=== PATIENT | male | born 1970 | race African-American/Black ===

== ENCOUNTER 2021-01-06 16:16 | Inpatient (IN) ==
[2021-01-06] MEDS ORDERED: SODIUM CHLORIDE 0.9% 500 ML IV STA (17:09)
[2021-01-06 17:21] LABS: Basophils % 0.3 % (0.0-0.8); Eosinophils # 0.1 10*3/uL (0.0-0.87); Eosinophils % 0.5 % (0.00-10.9); Hematocrit 30.9 VOL% (42.0-52.0); Hemoglobin 10.7 GM/DL (14.0-18.0); Immature Granulocytes % 1.5 %; Lymphocytes # 1.3 10*3/uL (1.4-4.0); Lymphocytes % 10.2 % (21.2-54.2); Mean Corpuscular HGB Conc 34.6 GM/DL (32-36); Mean Corpuscular Volume 96.6 FL (87-102); Mean Platelet Volume 9.6 FL (9.6-12.0); Monocytes % 12.1 % (1.7-12.7); NRBC # 0.05 10*3/uL; Neutrophils % 75.4 % (38.7-73.9); Platelet Count 108 T/CUMM (130-400); Red Cell Distribution Width 24.3 % (9.3-17.3); White Blood Count 13.1 T/CUMM (4-12)
[2021-01-06 17:32] LABS: PT Patient Result 20.9 SECS (10.5-12.0)
[2021-01-06 17:38] LABS: Bacteria,Urine Many /HPF (Few); Bilirubin,Urine Moderate mg/dL (Negative); Blood, Urine Large mg/dL (Negative); Glucose,Urine (UA) Negative (Negative); Ketones,Urine Negative (Negative); Nitrite,Urine Negative (Negative); Protein,Urine 30 MG/DL; RBC,Urine 20 /HPF (0-4); Squamous Epithelial Cell,Urine Occasional /HPF (0-10); Urine Appearance CLOUDY (Clear); Urine Color Amber (Yellow); Urine Specific Gravity 1.009 (1.001-1.035)
[2021-01-06 17:39] LABS: Partial Thromboplastin Time 49.1 SECS (23.9-33.8)
[2021-01-06 17:46] LABS: Anisocytosis 2+; Macrocytosis 2+; Microcytosis 1+; Polychromasia 2+; Target Cells 2+
[2021-01-06 17:47] LABS: Platelet Estimate Decreased
[2021-01-06 17:49] LABS: Albumin 1.9 G/DL (3.4-5.0); Calcium 9.3 MG/DL (8.5-10.1); Osmolality,Calculated 270.1 MOS/KG (273-304)
[2021-01-06 17:51] LABS: Bilirubin,Total 27.7 MG/DL (0.20-1.00); Potassium 2.2 MMOL/L (3.5-5.1)
[2021-01-06] MEDS ORDERED: cefTRIAXone 2,000 MG in SODIUM CHLORIDE 0.9% 100 ML IV STA (18:02)
[2021-01-06] MEDS: SODIUM CHLOR 0.9% KCL 40 MEQ 40 MEQ/1,000 ML BAG IV SCH (19:12)
[2021-01-06 19:19] LABS: Hepatitis B Core IgM Quant 0.07 Index; Hepatitis B Surface Ag Quant < 0.10 Index; Hepatitis B Surface Ag Result Non-Reactive (NonReactive); Hepatitis C Virus Ab Quant 0.32 Index; Hepatitis C Virus Ab Result Non-Reactive (NonReactive)
[2021-01-06] MEDS ORDERED: DEXTROSE 50% 25 GM/50 ML VIAL IV PRN (20:58)
[2021-01-06] MEDS ORDERED: GLUCAGON 1 MG VIAL IM PRN (20:58)
[2021-01-06] MEDS ORDERED: ONDANSETRON 4 MG/2 ML VIAL IV PRN (20:58)
[2021-01-06 21:49] LABS: Bilirubin,Direct 21.48 MG/DL (0.0-0.20)
[2021-01-06 21:53] LABS: Bilirubin,Indirect 3.9 MG/DL (0.0-1.0); Bilirubin,Total 25.4 MG/DL (0.20-1.00)
[2021-01-06 21:56] LABS: Barbiturates Screen,Urine Negative (Negative); Benzodiazepines Screen,Urine Negative (Negative); Cannabinoid Screen,Urine Positive (Negative); Opiate Screen,Urine Negative (Negative); Phencyclidine Screen,Urine Negative (Negative)
[2021-01-06] MEDS: metroNIDAZOLE INJ 500 MG/100 ML PREMIX IV SCH (23:59)
[2021-01-07] MEDS: POTASSIUM CHLORIDE RIDER 10 MEQ/100 ML PREMIX IV SCH ×8 (01:54→17:16)
[2021-01-07 03:17] LABS: Basophils # 0.1 10*3/uL (0.0-0.2); Basophils % 0.4 % (0.0-0.8); Eosinophils # 0.1 10*3/uL (0.0-0.87); Eosinophils % 0.6 % (0.00-10.9); Hematocrit 31.1 VOL% (42.0-52.0); Hemoglobin 10.8 GM/DL (14.0-18.0); Immature Granulocytes % 1.3 %; Immature Granulocytes Absolute 0.16 #; Lymphocytes # 1.2 10*3/uL (1.4-4.0); Mean Corpuscular HGB Conc 34.7 GM/DL (32-36); Mean Corpuscular Volume 97.8 FL (87-102); Mean Platelet Volume 10.3 FL (9.6-12.0); Monocytes % 14.3 % (1.7-12.7); NRBC # 0.06 10*3/uL; Neutrophils % 73.4 % (38.7-73.9); Platelet Count 109 T/CUMM (130-400); Red Blood Count 3.18 MC/CUMM (3.8-5.5); Red Cell Distribution Width 24.4 % (9.3-17.3); White Blood Count 12.3 T/CUMM (4-12)
[2021-01-07 03:45] LABS: Alanine Aminotransferase 66 U/L (16-61); Albumin 1.7 G/DL (3.4-5.0); Alkaline Phosphatase 133 U/L (45-117); Aspartate Amino Transferase 216 U/L (0-37); Blood Urea Nitrogen 5 MG/DL (7-18); Calcium 9.1 MG/DL (8.5-10.1); Carbon Dioxide 29 MMOL/L (21-32); Estimated Glom Filtration Rate 129 ML/MIN; Glucose 117 MG/DL (74-106); HDL Cholesterol 21 MG/DL (40-60); Osmolality,Calculated 267.1 MOS/KG (273-304); Risk Ratio 2.38; Sodium 135 MMOL/L (136-145); Thyroid Stimulating Hormone 0.442 uIU/ml (0.358-3.74); Total Protein 7.4 G/DL (6.4-8.2); Triglycerides 163 MG/DL (2-150); VLDL Cholesterol 32.6 MG/DL
[2021-01-07 03:50] LABS: Potassium 2.4 MMOL/L (3.5-5.1)
[2021-01-07] MEDS ORDERED: NICOTINE 21 MG/24 HR PATCH TRANSDERM PRN (03:50)
[2021-01-07] MEDS: LORazepam 2 MG/1 ML VIAL IV PRN ×2 (05:09→22:52)
[2021-01-07] MEDS: metroNIDAZOLE INJ 500 MG/100 ML PREMIX IV SCH ×3 (06:11→22:37)
[2021-01-07] MEDS: SODIUM CHLOR 0.9% KCL 40 MEQ 40 MEQ/1,000 ML BAG IV SCH (07:57)
[2021-01-07] MEDS ORDERED: FOLIC ACID 1 MG TABLET PO SCH (09:00)
[2021-01-07] MEDS ORDERED: LACTULOSE 20 GM/30 ML UDCUP PO SCH (09:00)
[2021-01-07] MEDS ORDERED: THIAMINE 100 MG TABLET PO SCH (09:00)
[2021-01-07] MEDS: PANTOPRAZOLE 40 MG TABLET PO SCH (09:22)
[2021-01-07] MEDS ORDERED: MAGNESIUM SULF RIDER 2 GM/50 ML PREMIX IV ONE (09:37)
[2021-01-07 11:17] LABS: Allen Test Positive; Pt O2 Delivery Device Room Air
[2021-01-07 11:18] LABS: ABG Base Excess 5.4 MMOL/L (-2.5-2.5); ABG HCO3 29.3 MMOL/L (20-26); ABG Oxygen Saturation 98.2 % (95-100); ABG PCO2 34.8 MM HG (35-48); ABG PH 7.519 (7.35-7.45); ABG TCO2 25.7 MMOL/L (23-27)
[2021-01-07] MEDS ORDERED: ENOXAPARIN 40 MG/0.4 ML SYRINGE SUBCUT SCH (12:00)
[2021-01-07] MEDS ORDERED: PHYTONADIONE 10 MG/1 ML AMP SUBCUT ONE (12:14)
[2021-01-07] MEDS ORDERED: chlordiazePOXIDE 25 MG CAPSULE PO SCH (14:00)
[2021-01-07] MEDS: THIAMINE INJ 100 MG, FOLIC ACID INJ 1 MG, MULTIVITAMIN INJ 10 ML in SODIUM CHLORIDE 0.9... IV SCH (15:14)
[2021-01-07] MEDS: LACTULOSE 20 GM/30 ML UDCUP PO SCH ×3 (15:15→22:37)
[2021-01-07] MEDS ORDERED: cefTRIAXone 1,000 MG in SODIUM CHLORIDE 0.9% 100 ML IV SCH (18:00)
[2021-01-07] MEDS: POTASSIUM CHLORIDE RIDER 10 MEQ/100 ML PREMIX IV PRN ×2 (22:37→23:57)
[2021-01-08] MEDS: POTASSIUM CHLORIDE RIDER 10 MEQ/100 ML PREMIX IV PRN ×6 (01:14→23:45)
[2021-01-08] MEDS: LACTULOSE 20 GM/30 ML UDCUP PO SCH ×5 (02:12→20:54)
[2021-01-08 05:22] LABS: Basophils # 0.1 10*3/uL (0.0-0.2); Basophils % 0.5 % (0.0-0.8); Eosinophils # 0.2 10*3/uL (0.0-0.87); Eosinophils % 1.8 % (0.00-10.9); Hematocrit 28.5 VOL% (42.0-52.0); Hemoglobin 9.8 GM/DL (14.0-18.0); Immature Granulocytes % 1.3 %; Immature Granulocytes Absolute 0.17 #; Lymphocytes # 1.2 10*3/uL (1.4-4.0); Mean Corpuscular HGB Conc 34.4 GM/DL (32-36); Mean Corpuscular Volume 100.4 FL (87-102); Mean Platelet Volume 9.6 FL (9.6-12.0); Monocytes % 14.1 % (1.7-12.7); NRBC # 0.05 10*3/uL; Neutrophils % 73.3 % (38.7-73.9); Platelet Count 106 T/CUMM (130-400); Red Blood Count 2.84 MC/CUMM (3.8-5.5); Red Cell Distribution Width 24.7 % (9.3-17.3); White Blood Count 13.1 T/CUMM (4-12)
[2021-01-08 05:31] LABS: INR 2.1; PT Patient Result 22.1 SECS (10.5-12.0)
[2021-01-08 06:07] LABS: Albumin 1.7 G/DL (3.4-5.0); Calcium 9.1 MG/DL (8.5-10.1); Potassium 2.6 MMOL/L (3.5-5.1); Total Protein 7.3 G/DL (6.4-8.2)
[2021-01-08 06:18] LABS: Bilirubin,Total 24.3 MG/DL (0.20-1.00)
[2021-01-08] MEDS: metroNIDAZOLE INJ 500 MG/100 ML PREMIX IV SCH (06:31)
[2021-01-08] MEDS ORDERED: SODIUM CHLORIDE 0.9% 250 ML IV ONE (07:27)
[2021-01-08] MEDS: PANTOPRAZOLE 40 MG TABLET PO SCH (08:59)
[2021-01-08] MEDS: POTASSIUM CHLORIDE RIDER 10 MEQ/100 ML PREMIX IV SCH ×4 (09:41→14:27)
[2021-01-08] MEDS ORDERED: SODIUM CHLORIDE 0.9% 1,000 ML IV PRN (10:17)
[2021-01-08] MEDS ORDERED: PHYTONADIONE 10 MG/1 ML AMP SUBCUT ONE (10:18)
[2021-01-08] MEDS ORDERED: SODIUM CHLORIDE 0.9% 1,000 ML IV ONE (13:52)
[2021-01-08] MEDS: MEROPENEM 500 MG in SODIUM CHLORIDE 0.9% 100 ML IV SCH ×2 (14:27→20:53)
[2021-01-08] MEDS: SODIUM CHLORIDE 0.9% 1,000 ML IV SCH (16:07)
[2021-01-08] MEDS: THIAMINE INJ 100 MG, FOLIC ACID INJ 1 MG, MULTIVITAMIN INJ 10 ML in SODIUM CHLORIDE 0.9... IV SCH (16:07)
[2021-01-09 01:07] LABS: Basophils % 0.3 % (0.0-0.8); Eosinophils # 0.3 10*3/uL (0.0-0.87); Hematocrit 25.7 VOL% (42.0-52.0); Hemoglobin 8.7 GM/DL (14.0-18.0); Immature Granulocytes % 1.4 %; Immature Granulocytes Absolute 0.19 #; Lymphocytes # 1.4 10*3/uL (1.4-4.0); Mean Corpuscular HGB Conc 33.9 GM/DL (32-36); Mean Corpuscular Volume 102.4 FL (87-102); Mean Platelet Volume 9.6 FL (9.6-12.0); Monocytes % 12.7 % (1.7-12.7); NRBC # 0.12 10*3/uL; Neutrophils % 73.6 % (38.7-73.9); Platelet Count 108 T/CUMM (130-400); Red Blood Count 2.51 MC/CUMM (3.8-5.5); Red Cell Distribution Width 24.7 % (9.3-17.3); White Blood Count 13.6 T/CUMM (4-12)
[2021-01-09] MEDS: POTASSIUM CHLORIDE RIDER 10 MEQ/100 ML PREMIX IV PRN ×5 (01:08→23:12)
[2021-01-09 01:35] LABS: Band Neutrophils 1 % (0-10); Eosinophils 1 % (0-10); Hypochromasia Slight; Lymphocytes 11 % (20-55); Platelet Estimate Normal; Segmented Neutrophils 75 % (50-85); Total Cells Counted 100
[2021-01-09 01:36] LABS: Albumin 2.1 G/DL (3.4-5.0); Calcium 9.1 MG/DL (8.5-10.1); Osmolality,Calculated 275.4 MOS/KG (273-304); Total Protein 7.2 G/DL (6.4-8.2)
[2021-01-09 02:00] LABS: Bilirubin,Total 25.2 MG/DL (0.20-1.00)
[2021-01-09] MEDS: MEROPENEM 500 MG in SODIUM CHLORIDE 0.9% 100 ML IV SCH ×4 (02:21→20:32)
[2021-01-09] MEDS: SODIUM CHLORIDE 0.9% 1,000 ML IV SCH ×2 (06:18→08:52)
[2021-01-09 08:06] LABS: INR 4.9; Partial Thromboplastin Time 60.4 SECS (23.9-33.8)
[2021-01-09] MEDS: PANTOPRAZOLE 40 MG TABLET PO SCH (08:52)
[2021-01-09] MEDS: POTASSIUM CHLORIDE 20 MEQ PACK PO SCH (08:52)
[2021-01-09] MEDS: LACTULOSE 20 GM/30 ML UDCUP PO SCH ×2 (09:23→20:32)
[2021-01-09 10:42] LABS: INR 1.7
[2021-01-09 10:44] LABS: PT Patient Result 18.2 SECS (10.5-12.0)
[2021-01-09] MEDS: THIAMINE INJ 100 MG, FOLIC ACID INJ 1 MG, MULTIVITAMIN INJ 10 ML in SODIUM CHLORIDE 0.9... IV SCH (14:35)
[2021-01-09] MEDS: SKIN HEALING OINT (AQUAPHOR) 50 GM TUBE TOP SCH (17:18)
[2021-01-10] MEDS: SODIUM CHLORIDE 0.9% 1,000 ML IV SCH ×2 (00:02→03:11)
[2021-01-10] MEDS: POTASSIUM CHLORIDE RIDER 10 MEQ/100 ML PREMIX IV PRN ×5 (00:15→06:08)
[2021-01-10] MEDS: MEROPENEM 500 MG in SODIUM CHLORIDE 0.9% 100 ML IV SCH ×4 (01:18→20:12)
[2021-01-10 02:57] LABS: Basophils # 0.1 10*3/uL (0.0-0.2); Basophils % 0.4 % (0.0-0.8); Eosinophils # 0.3 10*3/uL (0.0-0.87); Hematocrit 25.9 VOL% (42.0-52.0); Hemoglobin 8.7 GM/DL (14.0-18.0); Immature Granulocytes % 1.2 %; Immature Granulocytes Absolute 0.19 #; Lymphocytes # 1.3 10*3/uL (1.4-4.0); Lymphocytes % 8.2 % (21.2-54.2); Mean Corpuscular HGB Conc 33.6 GM/DL (32-36); Mean Corpuscular Volume 104.4 FL (87-102); Mean Platelet Volume 9.1 FL (9.6-12.0); NRBC # 0.13 10*3/uL; Neutrophils % 75.2 % (38.7-73.9); Red Blood Count 2.48 MC/CUMM (3.8-5.5); Red Cell Distribution Width 23.8 % (9.3-17.3); White Blood Count 16.3 T/CUMM (4-12)
[2021-01-10 02:59] LABS: Platelet Count 97 T/CUMM (130-400)
[2021-01-10 03:17] LABS: Albumin 1.9 G/DL (3.4-5.0); Calcium 8.6 MG/DL (8.5-10.1); Osmolality,Calculated 279.3 MOS/KG (273-304); Potassium 3.3 MMOL/L (3.5-5.1); Total Protein 6.9 G/DL (6.4-8.2)
[2021-01-10 03:23] LABS: Bilirubin,Total 25.4 MG/DL (0.20-1.00)
[2021-01-10 03:34] LABS: Hypochromasia 2+; Platelet Estimate Decreased; Target Cells 1+
[2021-01-10] MEDS ORDERED: POTASSIUM CHLORIDE 20 MEQ PACK PO ONE (07:13)
[2021-01-10] MEDS ORDERED: LACTATED RINGERS 500 ML IV ONE (07:15)
[2021-01-10 08:07] LABS: INR 1.9; PT Patient Result 20.3 SECS (10.5-12.0)
[2021-01-10] MEDS: PANTOPRAZOLE 40 MG TABLET PO SCH (08:35)
[2021-01-10] MEDS: LACTULOSE 20 GM/30 ML UDCUP PO SCH ×2 (08:36→20:12)
[2021-01-10] MEDS: SKIN HEALING OINT (AQUAPHOR) 50 GM TUBE TOP SCH (08:42)
[2021-01-10] MEDS: LACTATED RINGERS 1,000 ML IV SCH (13:43)
[2021-01-10] MEDS: THIAMINE INJ 100 MG, FOLIC ACID INJ 1 MG, MULTIVITAMIN INJ 10 ML in SODIUM CHLORIDE 0.9... IV SCH (14:38)
[2021-01-11] MEDS: MEROPENEM 500 MG in SODIUM CHLORIDE 0.9% 100 ML IV SCH ×4 (02:03→20:43)
[2021-01-11 03:27] LABS: Basophils # 0.1 10*3/uL (0.0-0.2); Basophils % 0.3 % (0.0-0.8); Eosinophils # 0.4 10*3/uL (0.0-0.87); Eosinophils % 2.3 % (0.00-10.9); Hemoglobin 7.7 GM/DL (14.0-18.0); Immature Granulocytes % 2.3 %; Immature Granulocytes Absolute 0.36 #; Lymphocytes # 1.6 10*3/uL (1.4-4.0); Lymphocytes % 10.3 % (21.2-54.2); Mean Corpuscular HGB Conc 33.5 GM/DL (32-36); Mean Corpuscular Volume 104.5 FL (87-102); Mean Platelet Volume 9.3 FL (9.6-12.0); NRBC # 0.12 10*3/uL; Neutrophils % 70.8 % (38.7-73.9); Platelet Count 116 T/CUMM (130-400); Red Cell Distribution Width 23.3 % (9.3-17.3); White Blood Count 15.4 T/CUMM (4-12)
[2021-01-11 03:43] LABS: Albumin 1.6 G/DL (3.4-5.0); Calcium 8.5 MG/DL (8.5-10.1); Osmolality,Calculated 277.4 MOS/KG (273-304); PT Patient Result 21.5 SECS (10.5-12.0); Potassium 3.3 MMOL/L (3.5-5.1); Total Protein 6.2 G/DL (6.4-8.2)
[2021-01-11 03:50] LABS: Band Neutrophils 1 % (0-10); Eosinophils 4 % (0-10); Lymphocytes 9 % (20-55); Nucleated Red Blood Cells 2 (0-5); Segmented Neutrophils 69 % (50-85); Total Cells Counted 100
[2021-01-11 03:51] LABS: Hypochromasia 2+; Microcytosis 1+
[2021-01-11] MEDS: LACTATED RINGERS 1,000 ML IV SCH (04:01)
[2021-01-11 04:15] LABS: Bilirubin,Total 24.3 MG/DL (0.20-1.00)
[2021-01-11] MEDS: PANTOPRAZOLE 40 MG TABLET PO SCH (09:33)
[2021-01-11] MEDS: LACTULOSE 20 GM/30 ML UDCUP PO SCH ×2 (09:33→20:43)
[2021-01-11] MEDS: SKIN HEALING OINT (AQUAPHOR) 50 GM TUBE TOP SCH (09:38)
[2021-01-11 09:42] LABS: Basophils # 0.1 10*3/uL (0.0-0.2); Basophils % 0.3 % (0.0-0.8); Eosinophils # 0.3 10*3/uL (0.0-0.87); Eosinophils % 1.7 % (0.00-10.9); Hematocrit 24.3 VOL% (42.0-52.0); Hemoglobin 8.3 GM/DL (14.0-18.0); Immature Granulocytes Absolute 0.48 #; Lymphocytes # 1.8 10*3/uL (1.4-4.0); Lymphocytes % 11.2 % (21.2-54.2); Mean Corpuscular HGB Conc 34.2 GM/DL (32-36); Mean Corpuscular Volume 102.1 FL (87-102); Mean Platelet Volume 9.2 FL (9.6-12.0); Monocytes % 14.3 % (1.7-12.7); NRBC # 0.09 10*3/uL; Neutrophils % 69.5 % (38.7-73.9); Platelet Count 109 T/CUMM (130-400); Red Blood Count 2.38 MC/CUMM (3.8-5.5)
[2021-01-11 10:01] LABS: Eosinophils 1 % (0-10); Hypochromasia 1+; Lymphocytes 9 % (20-55); Microcytosis 1+; Platelet Estimate Decreased; Segmented Neutrophils 83 % (50-85); Total Cells Counted 100
[2021-01-11] MEDS: POTASSIUM CHLORIDE 20 MEQ TABLET PO PRN ×3 (10:26→14:56)
[2021-01-11] MEDS: PHYTONADIONE 5 MG/5 ML ORAL.SYR PO SCH (11:09)
[2021-01-11] MEDS: THIAMINE INJ 100 MG, FOLIC ACID INJ 1 MG, MULTIVITAMIN INJ 10 ML in SODIUM CHLORIDE 0.9... IV SCH (14:04)
[2021-01-11] MEDS: TAMSULOSIN 0.4 MG CAPSULE PO SCH (20:43)
[2021-01-11] MEDS ORDERED: SODIUM CHLORIDE 0.9% 1,000 ML IV PRN (20:48)
[2021-01-11] MEDS ORDERED: PHYTONADIONE 5 MG/5 ML ORAL.SYR PO STA (20:48)
[2021-01-12] MEDS: LACTATED RINGERS 1,000 ML IV SCH ×2 (01:55→20:28)
[2021-01-12] MEDS: MEROPENEM 500 MG in SODIUM CHLORIDE 0.9% 100 ML IV SCH ×4 (04:00→20:29)
[2021-01-12 05:57] LABS: Basophils # 0.1 10*3/uL (0.0-0.2); Basophils % 0.4 % (0.0-0.8); Eosinophils # 0.3 10*3/uL (0.0-0.87); Eosinophils % 1.9 % (0.00-10.9); Hematocrit 21.6 VOL% (42.0-52.0); Hemoglobin 7.3 GM/DL (14.0-18.0); Immature Granulocytes % 2.8 %; Immature Granulocytes Absolute 0.41 #; Lymphocytes # 1.8 10*3/uL (1.4-4.0); Lymphocytes % 12.6 % (21.2-54.2); Mean Corpuscular HGB Conc 33.8 GM/DL (32-36); Mean Corpuscular Volume 104.9 FL (87-102); Mean Platelet Volume 9.9 FL (9.6-12.0); Monocytes % 16.8 % (1.7-12.7); NRBC # 0.11 10*3/uL; Neutrophils % 65.5 % (38.7-73.9); Platelet Count 113 T/CUMM (130-400); Red Blood Count 2.06 MC/CUMM (3.8-5.5); White Blood Count 14.4 T/CUMM (4-12)
[2021-01-12 06:05] LABS: INR 1.5; PT Patient Result 16.6 SECS (10.5-12.0)
[2021-01-12 06:19] LABS: Eosinophils 6 % (0-10); Hypochromasia 1+; Lymphocytes 9 % (20-55); Microcytosis 1+; Nucleated Red Blood Cells 3 (0-5); Ovalocytes Slight; Platelet Estimate Decreased; Segmented Neutrophils 68 % (50-85); Total Cells Counted 100
[2021-01-12 06:30] LABS: Albumin 1.9 G/DL (3.4-5.0); Calcium 9.6 MG/DL (8.5-10.1); Osmolality,Calculated 277.4 MOS/KG (273-304); Potassium 3.1 MMOL/L (3.5-5.1); Total Protein 6.8 G/DL (6.4-8.2)
[2021-01-12 06:33] LABS: Bilirubin,Total 24.1 MG/DL (0.20-1.00)
[2021-01-12] MEDS ORDERED: SODIUM CHLORIDE 0.9% 1,000 ML IV PRN (08:10)
[2021-01-12] MEDS: POTASSIUM CHLORIDE 20 MEQ TABLET PO SCH ×2 (09:00→10:11)
[2021-01-12] MEDS: PHYTONADIONE 5 MG/5 ML ORAL.SYR PO SCH (09:00)
[2021-01-12] MEDS: POTASSIUM CHLORIDE 20 MEQ TABLET PO PRN (09:00)
[2021-01-12] MEDS: PANTOPRAZOLE 40 MG TABLET PO SCH (09:00)
[2021-01-12] MEDS: SKIN HEALING OINT (AQUAPHOR) 50 GM TUBE TOP SCH (09:01)
[2021-01-12] MEDS: LACTULOSE 20 GM/30 ML UDCUP PO SCH ×2 (09:02→20:29)
[2021-01-12] MEDS: chlordiazePOXIDE 25 MG CAPSULE PO SCH ×3 (10:11→20:27)
[2021-01-12] MEDS: THIAMINE INJ 100 MG, FOLIC ACID INJ 1 MG, MULTIVITAMIN INJ 10 ML in SODIUM CHLORIDE 0.9... IV SCH (14:48)
[2021-01-12] MEDS: PENTOXIFYLLINE 400 MG TABLET PO SCH ×2 (16:17→20:32)
[2021-01-12] MEDS: TAMSULOSIN 0.4 MG CAPSULE PO SCH (20:27)
[2021-01-13] MEDS: MEROPENEM 500 MG in SODIUM CHLORIDE 0.9% 100 ML IV SCH ×4 (02:38→20:47)
[2021-01-13 03:23] LABS: Basophils # 0.1 10*3/uL (0.0-0.2); Basophils % 0.4 % (0.0-0.8); Eosinophils # 0.3 10*3/uL (0.0-0.87); Hematocrit 23.2 VOL% (42.0-52.0); Hemoglobin 7.6 GM/DL (14.0-18.0); Immature Granulocytes % 3.9 %; Immature Granulocytes Absolute 0.58 #; Lymphocytes # 1.8 10*3/uL (1.4-4.0); Lymphocytes % 12.2 % (21.2-54.2); Mean Corpuscular HGB Conc 32.8 GM/DL (32-36); Mean Corpuscular Volume 106.4 FL (87-102); Mean Platelet Volume 9.5 FL (9.6-12.0); Monocytes % 16.5 % (1.7-12.7); NRBC # 0.19 10*3/uL; Platelet Count 117 T/CUMM (130-400); Red Blood Count 2.18 MC/CUMM (3.8-5.5); White Blood Count 14.8 T/CUMM (4-12)
[2021-01-13 03:51] LABS: Albumin 2.2 G/DL (3.4-5.0); Calcium 9.6 MG/DL (8.5-10.1); Osmolality,Calculated 275.5 MOS/KG (273-304); Potassium 3.3 MMOL/L (3.5-5.1); Total Protein 7.3 G/DL (6.4-8.2)
[2021-01-13 03:53] LABS: Eosinophils 2 % (0-10); Hypochromasia Slight; Lymphocytes 14 % (20-55); Platelet Estimate Normal; Segmented Neutrophils 65 % (50-85); Total Cells Counted 100
[2021-01-13 03:55] LABS: Bilirubin,Total 24.6 MG/DL (0.20-1.00)
[2021-01-13 04:00] LABS: INR 1.6; PT Patient Result 16.9 SECS (10.5-12.0)
[2021-01-13 07:50] LABS: Hematocrit 20.7 VOL% (42.0-52.0)
[2021-01-13 07:58] LABS: INR 1.6
[2021-01-13] MEDS: POTASSIUM CHLORIDE 20 MEQ TABLET PO SCH ×3 (09:06→20:49)
[2021-01-13] MEDS: chlordiazePOXIDE 25 MG CAPSULE PO SCH ×3 (09:22→20:49)
[2021-01-13] MEDS: PHYTONADIONE 5 MG/5 ML ORAL.SYR PO SCH ×2 (09:22→20:50)
[2021-01-13] MEDS: PENTOXIFYLLINE 400 MG TABLET PO SCH ×3 (09:22→20:49)
[2021-01-13] MEDS: LACTULOSE 20 GM/30 ML UDCUP PO SCH ×2 (09:22→20:49)
[2021-01-13] MEDS: PANTOPRAZOLE 40 MG TABLET PO SCH (09:22)
[2021-01-13] MEDS ORDERED: SODIUM CHLORIDE 0.9% 1,000 ML IV PRN (11:32)
[2021-01-13 11:51] LABS: CMV DNA Detect/Quant, P Undetected IU/mL (Undetected)
[2021-01-13] MEDS: POTASSIUM CHLORIDE 20 MEQ TABLET PO PRN (14:36)
[2021-01-13] MEDS ORDERED: LACTULOSE 20 GM/30 ML UDCUP PO ONE (15:00)
[2021-01-13] MEDS ORDERED: LACTULOSE 20 GM/30 ML UDCUP PO PRN (18:12)
[2021-01-13] MEDS: LACTATED RINGERS 1,000 ML IV SCH ×2 (19:38→20:47)
[2021-01-13] MEDS: SKIN HEALING OINT (AQUAPHOR) 50 GM TUBE TOP SCH (19:38)
[2021-01-13] MEDS: TAMSULOSIN 0.4 MG CAPSULE PO SCH (20:49)
[2021-01-13] MEDS ORDERED: PHYTONADIONE 5 MG/5 ML ORAL.SYR PO ONE (21:00)
[2021-01-14] MEDS: MEROPENEM 500 MG in SODIUM CHLORIDE 0.9% 100 ML IV SCH ×4 (01:41→20:33)
[2021-01-14 04:41] LABS: Basophils # 0.1 10*3/uL (0.0-0.2); Basophils % 0.7 % (0.0-0.8); Eosinophils # 0.1 10*3/uL (0.0-0.87); Eosinophils % 0.6 % (0.00-10.9); Hematocrit 28.3 VOL% (42.0-52.0); Hemoglobin 9.6 GM/DL (14.0-18.0); Immature Granulocytes Absolute 0.43 #; Lymphocytes # 1.7 10*3/uL (1.4-4.0); Lymphocytes % 11.8 % (21.2-54.2); Mean Corpuscular HGB Conc 33.9 GM/DL (32-36); Mean Corpuscular Volume 101.1 FL (87-102); Mean Platelet Volume 9.6 FL (9.6-12.0); Monocytes % 14.1 % (1.7-12.7); Neutrophils % 69.8 % (38.7-73.9); Platelet Count 136 T/CUMM (130-400); Red Cell Distribution Width 23.6 % (9.3-17.3); White Blood Count 14.4 T/CUMM (4-12)
[2021-01-14 04:49] LABS: INR 1.8; PT Patient Result 19.2 SECS (10.5-12.0)
[2021-01-14 05:05] LABS: Hypochromasia 1+; Platelet Estimate Normal
[2021-01-14 05:12] LABS: Albumin 2.3 G/DL (3.4-5.0); Calcium 10.1 MG/DL (8.5-10.1); Potassium 3.4 MMOL/L (3.5-5.1); Total Protein 7.7 G/DL (6.4-8.2)
[2021-01-14 05:19] LABS: Bilirubin,Total 26.1 MG/DL (0.20-1.00)
[2021-01-14] MEDS ORDERED: chlordiazePOXIDE 25 MG CAPSULE PO SCH (09:00)
[2021-01-14] MEDS: LACTULOSE 20 GM/30 ML UDCUP PO SCH ×2 (09:10→20:33)
[2021-01-14] MEDS: SKIN HEALING OINT (AQUAPHOR) 50 GM TUBE TOP SCH (09:11)
[2021-01-14] MEDS: POTASSIUM CHLORIDE 20 MEQ TABLET PO PRN ×3 (09:11→17:13)
[2021-01-14] MEDS: PANTOPRAZOLE 40 MG TABLET PO SCH (09:11)
[2021-01-14] MEDS: PENTOXIFYLLINE 400 MG TABLET PO SCH ×3 (09:11→20:53)
[2021-01-14] MEDS: PHYTONADIONE 5 MG/5 ML ORAL.SYR PO SCH ×2 (09:11→20:33)
[2021-01-14] MEDS ORDERED: PHYTONADIONE 10 MG/1 ML AMP SUBCUT ONE (09:32)
[2021-01-14] MEDS: POTASSIUM CHLORIDE 20 MEQ TABLET PO SCH ×2 (10:28→20:33)
[2021-01-14] MEDS ORDERED: SODIUM CHLORIDE 0.9% 1,000 ML IV ONE (11:58)
[2021-01-14] MEDS ORDERED: FUROSEMIDE 40 MG/4 ML VIAL ONE (12:31)
[2021-01-14] MEDS ORDERED: FUROSEMIDE 40 MG/4 ML VIAL IV ONE (12:32)
[2021-01-14] MEDS: LACTATED RINGERS 1,000 ML IV SCH ×3 (13:27→23:34)
[2021-01-14 13:52] LABS: ABG Base Excess -2.7 MMOL/L (-2.5-2.5); ABG Oxygen Saturation 85.4 % (95-100); ABG PCO2 30.8 MM HG (35-48); ABG PH 7.438 (7.35-7.45); ABG PO2 56.1 MM HG (80-95); ABG TCO2 19.2 MMOL/L (23-27)
[2021-01-14 14:57] LABS: Calcium 10.1 MG/DL (8.5-10.1); Osmolality,Calculated 281.1 MOS/KG (273-304); Potassium 3.6 MMOL/L (3.5-5.1)
[2021-01-14] MEDS ORDERED: ALBUMIN 25% 25 GM/100 ML VIAL IV ONE (15:07)
[2021-01-14] MEDS: metroNIDAZOLE INJ 500 MG/100 ML PREMIX IV SCH ×2 (15:34→23:34)
[2021-01-14] MEDS: TAMSULOSIN 0.4 MG CAPSULE PO SCH (20:33)
[2021-01-15 01:19] LABS: Basophils % 0.2 % (0.0-0.8); Eosinophils % 0.2 % (0.00-10.9); Immature Granulocytes % 1.5 %; Immature Granulocytes Absolute 0.25 #; Lymphocytes # 1.7 10*3/uL (1.4-4.0); Lymphocytes % 9.8 % (21.2-54.2); Mean Corpuscular HGB Conc 33.3 GM/DL (32-36); Mean Corpuscular Volume 101.5 FL (87-102); Mean Platelet Volume 9.7 FL (9.6-12.0); Monocytes % 10.3 % (1.7-12.7); NRBC # 0.57 10*3/uL; Platelet Count 130 T/CUMM (130-400); Red Blood Count 2.66 MC/CUMM (3.8-5.5); Red Cell Distribution Width 24.7 % (9.3-17.3)
[2021-01-15 01:19] LABS: ABG HCO3 21.9 MMOL/L (20-26); ABG Oxygen Saturation 94.7 % (95-100); ABG PCO2 30.7 MM HG (35-48); ABG PH 7.434 (7.35-7.45); ABG PO2 79.2 MM HG (80-95)
[2021-01-15] MEDS ORDERED: ETOMIDATE 20 MG/10 ML VIAL IV ONE ×2 (01:23→01:36)
[2021-01-15] MEDS ORDERED: ROCURONIUM 100 MG/10 ML VIAL IV ONE ×2 (01:24→01:36)
[2021-01-15] MEDS ORDERED: fentaNYL INJ 5,000 MCG in SODIUM CHLORIDE 0.9% 150 ML IV PRN (01:41)
[2021-01-15 01:42] LABS: INR 1.9; PT Patient Result 20.5 SECS (10.5-12.0)
[2021-01-15 01:47] LABS: Albumin 2.2 G/DL (3.4-5.0); Calcium 9.9 MG/DL (8.5-10.1); Osmolality,Calculated 278.3 MOS/KG (273-304); Potassium 5.2 MMOL/L (3.5-5.1)
[2021-01-15 01:52] LABS: Bilirubin,Total 24.3 MG/DL (0.20-1.00)
[2021-01-15] MEDS: MIDAZOLAM 100 MG in SODIUM CHLORIDE 0.9% 80 ML IV PRN (02:20)
[2021-01-15] MEDS: MEROPENEM 500 MG in SODIUM CHLORIDE 0.9% 100 ML IV SCH ×4 (02:54→21:33)
[2021-01-15 03:10] LABS: Lymphocytes 8 % (20-55); Metamyelocytes 1 %; Nucleated Red Blood Cells 5 (0-5); Platelet Estimate Normal; Segmented Neutrophils 85 % (50-85); Total Cells Counted 100
[2021-01-15 03:11] LABS: Macrocytosis 1+
[2021-01-15 03:12] LABS: Anisocytosis 2+; Target Cells 1+
[2021-01-15 03:13] LABS: Polychromasia 1+
[2021-01-15 03:35] LABS: ABG Base Excess -4.1 MMOL/L (-2.5-2.5); ABG HCO3 21.1 MMOL/L (20-26); ABG Oxygen Saturation 99.6 % (95-100); ABG PCO2 32.7 MM HG (35-48); ABG PH 7.397 (7.35-7.45); ABG TCO2 18.5 MMOL/L (23-27)
[2021-01-15] MEDS: metroNIDAZOLE INJ 500 MG/100 ML PREMIX IV SCH ×2 (06:04→16:23)
[2021-01-15] MEDS: LACTATED RINGERS 1,000 ML IV SCH ×2 (08:43→17:05)
[2021-01-15] MEDS: LACTULOSE 20 GM/30 ML UDCUP PO SCH ×2 (09:24→21:33)
[2021-01-15] MEDS: PHYTONADIONE 5 MG/5 ML ORAL.SYR PO SCH ×2 (09:24→21:33)
[2021-01-15] MEDS: PANTOPRAZOLE 40 MG VIAL IV SCH (09:25)
[2021-01-15] MEDS: NOREPINEPHRINE 8 MG in SODIUM CHLORIDE 0.9% 242 ML IV PRN (13:05)
[2021-01-15] MEDS: SKIN HEALING OINT (AQUAPHOR) 50 GM TUBE TOP SCH (14:00)
[2021-01-15] MEDS ORDERED: LIDOCAINE 2% TOP JELLY 20 ML VIAL INTRAURETH ONE ×2 (15:07→15:10)
[2021-01-15 17:27] LABS: Bacteria,Urine Occasional /HPF (Few); Blood, Urine Negative (Negative); Glucose,Urine (UA) 50 mg/dL (Negative); Hyaline Casts,Urine 66 /LPF (0-3); Ketones,Urine 5 mg/dL (Negative); Mucus,Urine Occasional /LPF (Occasional); Nitrite,Urine Negative (Negative); Protein,Urine 30 MG/DL; RBC,Urine 1 /HPF (0-4); Squamous Epithelial Cell,Urine Occasional /HPF (0-10); Urine Appearance CLEAR (Clear); Urine Color Amber (Yellow); Urine Specific Gravity 1.026 (1.001-1.035)
[2021-01-15 17:33] LABS: Bilirubin,Urine Moderate mg/dL (Negative)
[2021-01-15] MEDS: TAMSULOSIN 0.4 MG CAPSULE PO SCH (21:33)
[2021-01-16] MEDS: metroNIDAZOLE INJ 500 MG/100 ML PREMIX IV SCH ×4 (00:03→23:48)
[2021-01-16] MEDS ORDERED: LACTATED RINGERS 250 ML IV ONE (02:27)
[2021-01-16] MEDS: LACTATED RINGERS 1,000 ML IV SCH ×3 (02:49→17:00)
[2021-01-16] MEDS: MEROPENEM 500 MG in SODIUM CHLORIDE 0.9% 100 ML IV SCH ×4 (02:50→20:15)
[2021-01-16 04:04] LABS: Basophils # 0.1 10*3/uL (0.0-0.2); Basophils % 0.3 % (0.0-0.8); Eosinophils # 0.3 10*3/uL (0.0-0.87); Eosinophils % 1.6 % (0.00-10.9); Hematocrit 22.2 VOL% (42.0-52.0); Hemoglobin 7.4 GM/DL (14.0-18.0); Immature Granulocytes % 2.6 %; Immature Granulocytes Absolute 0.46 #; Lymphocytes # 1.3 10*3/uL (1.4-4.0); Lymphocytes % 7.3 % (21.2-54.2); Mean Corpuscular HGB Conc 33.3 GM/DL (32-36); Mean Corpuscular Volume 103.3 FL (87-102); Mean Platelet Volume 10.1 FL (9.6-12.0); Monocytes % 11.1 % (1.7-12.7); NRBC # 0.91 10*3/uL; Neutrophils % 77.1 % (38.7-73.9); Platelet Count 107 T/CUMM (130-400); Red Blood Count 2.15 MC/CUMM (3.8-5.5); Red Cell Distribution Width 25.2 % (9.3-17.3); White Blood Count 17.4 T/CUMM (4-12)
[2021-01-16 04:07] LABS: Albumin 1.9 G/DL (3.4-5.0); Calcium 9.3 MG/DL (8.5-10.1); Osmolality,Calculated 283.8 MOS/KG (273-304); Potassium 3.5 MMOL/L (3.5-5.1); Total Protein 6.2 G/DL (6.4-8.2)
[2021-01-16 04:11] LABS: ABG Base Excess -1.3 MMOL/L (-2.5-2.5); ABG HCO3 23.5 MMOL/L (20-26); ABG Oxygen Saturation 89.8 % (95-100); ABG PCO2 39.8 MM HG (35-48); ABG PH 7.389 (7.35-7.45); ABG PO2 62.9 MM HG (80-95); ABG TCO2 24.7 MMOL/L (23-27)
[2021-01-16 04:17] LABS: Band Neutrophils 1 % (0-10); Hypochromasia 1+; Lymphocytes 7 % (20-55); Microcytosis 1+; Nucleated Red Blood Cells 5 (0-5); Platelet Estimate Decreased; Segmented Neutrophils 81 % (50-85); Total Cells Counted 100
[2021-01-16 04:19] LABS: PT Patient Result 21.6 SECS (10.5-12.0)
[2021-01-16] MEDS ORDERED: SODIUM CHLORIDE 0.9% 1,000 ML IV PRN (07:10)
[2021-01-16] MEDS: NOREPINEPHRINE 8 MG in SODIUM CHLORIDE 0.9% 242 ML IV PRN (07:40)
[2021-01-16] MEDS: MIDAZOLAM 100 MG in SODIUM CHLORIDE 0.9% 80 ML IV PRN (09:17)
[2021-01-16] MEDS: SKIN HEALING OINT (AQUAPHOR) 50 GM TUBE TOP SCH (09:25)
[2021-01-16] MEDS: LACTULOSE 20 GM/30 ML UDCUP PO SCH ×2 (09:25→20:16)
[2021-01-16] MEDS: PANTOPRAZOLE 40 MG VIAL IV SCH (09:25)
[2021-01-16] MEDS: PHYTONADIONE 5 MG/5 ML ORAL.SYR PO SCH ×2 (09:26→20:16)
[2021-01-16 19:41] LABS: Hematocrit 30.8 VOL% (42.0-52.0); Hemoglobin 10.1 GM/DL (14.0-18.0)
[2021-01-16] MEDS: TAMSULOSIN 0.4 MG CAPSULE PO SCH (20:16)
[2021-01-17] MEDS: MEROPENEM 500 MG in SODIUM CHLORIDE 0.9% 100 ML IV SCH ×4 (01:06→20:21)
[2021-01-17] MEDS: LACTATED RINGERS 1,000 ML IV SCH ×5 (01:08→22:53)
[2021-01-17] MEDS: NOREPINEPHRINE 8 MG in SODIUM CHLORIDE 0.9% 242 ML IV PRN ×4 (01:10→18:45)
[2021-01-17 04:15] LABS: Basophils # 0.1 10*3/uL (0.0-0.2); Basophils % 0.7 % (0.0-0.8); Eosinophils # 0.2 10*3/uL (0.0-0.87); Eosinophils % 1.1 % (0.00-10.9); Hematocrit 29.7 VOL% (42.0-52.0); Hemoglobin 9.8 GM/DL (14.0-18.0); Immature Granulocytes % 4.1 %; Immature Granulocytes Absolute 0.83 #; Lymphocytes # 1.6 10*3/uL (1.4-4.0); Lymphocytes % 7.8 % (21.2-54.2); Mean Corpuscular Volume 99.7 FL (87-102); Mean Platelet Volume 10.3 FL (9.6-12.0); Monocytes % 11.4 % (1.7-12.7); NRBC # 0.68 10*3/uL; Neutrophils % 74.9 % (38.7-73.9); Platelet Count 104 T/CUMM (130-400); Red Blood Count 2.98 MC/CUMM (3.8-5.5); Red Cell Distribution Width 23.6 % (9.3-17.3); White Blood Count 20.4 T/CUMM (4-12)
[2021-01-17 04:35] LABS: Band Neutrophils 6 % (0-10); Eosinophils 1 % (0-10); Hypochromasia Slight; Lymphocytes 6 % (20-55); Nucleated Red Blood Cells 4 (0-5); Platelet Estimate Decreased; Segmented Neutrophils 84 % (50-85); Total Cells Counted 100
[2021-01-17 04:36] LABS: Microcytosis Slight
[2021-01-17 04:47] LABS: Albumin 1.8 G/DL (3.4-5.0); Calcium 9.1 MG/DL (8.5-10.1); Osmolality,Calculated 288.7 MOS/KG (273-304); Potassium 4.3 MMOL/L (3.5-5.1); Total Protein 6.5 G/DL (6.4-8.2)
[2021-01-17 04:48] LABS: ABG Base Excess -4.3 MMOL/L (-2.5-2.5); ABG HCO3 20.9 MMOL/L (20-26); ABG Oxygen Saturation 96.5 % (95-100); ABG PH 7.342 (7.35-7.45); ABG PO2 93.8 MM HG (80-95); ABG TCO2 19.4 MMOL/L (23-27)
[2021-01-17 04:51] LABS: Bilirubin,Total 22.6 MG/DL (0.20-1.00)
[2021-01-17 04:51] LABS: INR 2.1
[2021-01-17 05:14] LABS: PT Patient Result 22.5 SECS (10.5-12.0)
[2021-01-17] MEDS: metroNIDAZOLE INJ 500 MG/100 ML PREMIX IV SCH ×3 (08:00→22:48)
[2021-01-17] MEDS: PHYTONADIONE 5 MG/5 ML ORAL.SYR PO SCH ×2 (08:01→20:20)
[2021-01-17] MEDS: PANTOPRAZOLE 40 MG VIAL IV SCH (08:01)
[2021-01-17] MEDS: LACTULOSE 20 GM/30 ML UDCUP PO SCH ×2 (08:01→20:20)
[2021-01-17] MEDS: SKIN HEALING OINT (AQUAPHOR) 50 GM TUBE TOP SCH (08:38)
[2021-01-17] MEDS: methylPREDNISolone SOD SUC 40 MG/1 ML VIAL IV SCH ×2 (09:25→20:20)
[2021-01-17] MEDS ORDERED: LACTATED RINGERS 500 ML IV ONE (09:37)
[2021-01-17] MEDS ORDERED: FUROSEMIDE 40 MG/4 ML VIAL IV ONE (14:46)
[2021-01-17] MEDS ORDERED: NOREPINEPHRINE 4 MG/4 ML VIAL IV ONE (18:43)
[2021-01-17] MEDS: TAMSULOSIN 0.4 MG CAPSULE PO SCH (20:21)
[2021-01-18] MEDS: NOREPINEPHRINE 8 MG in SODIUM CHLORIDE 0.9% 242 ML IV PRN ×2 (00:36→06:07)
[2021-01-18] MEDS: MEROPENEM 500 MG in SODIUM CHLORIDE 0.9% 100 ML IV SCH ×4 (02:35→20:27)
[2021-01-18 03:38] LABS: ABG Base Excess -5.5 MMOL/L (-2.5-2.5); ABG HCO3 19.8 MMOL/L (20-26); ABG Oxygen Saturation 91.5 % (95-100); ABG PCO2 44.1 MM HG (35-48); ABG PH 7.286 (7.35-7.45); ABG PO2 72.6 MM HG (80-95); ABG TCO2 19.4 MMOL/L (23-27)
[2021-01-18 05:27] LABS: Basophils # 0.1 10*3/uL (0.0-0.2); Basophils % 0.5 % (0.0-0.8); Eosinophils % 0.1 % (0.00-10.9); Hematocrit 31.4 VOL% (42.0-52.0); Hemoglobin 10.3 GM/DL (14.0-18.0); Immature Granulocytes % 4.2 %; Immature Granulocytes Absolute 0.96 #; Lymphocytes % 8.9 % (21.2-54.2); Mean Corpuscular HGB Conc 32.8 GM/DL (32-36); Mean Corpuscular Volume 100.6 FL (87-102); Mean Platelet Volume 10.2 FL (9.6-12.0); Monocytes % 9.7 % (1.7-12.7); NRBC # 0.29 10*3/uL; Neutrophils % 76.6 % (38.7-73.9); Platelet Count 108 T/CUMM (130-400); Red Blood Count 3.12 MC/CUMM (3.8-5.5); Red Cell Distribution Width 24.4 % (9.3-17.3); White Blood Count 22.9 T/CUMM (4-12)
[2021-01-18 05:47] LABS: Band Neutrophils 7 % (0-10); Lymphocytes 6 % (20-55); Platelet Estimate Adequate; Segmented Neutrophils 85 % (50-85); Total Cells Counted 100
[2021-01-18 05:48] LABS: Albumin 1.6 G/DL (3.4-5.0); Calcium 8.4 MG/DL (8.5-10.1); Osmolality,Calculated 298.4 MOS/KG (273-304); Potassium 3.7 MMOL/L (3.5-5.1); Total Protein 6.8 G/DL (6.4-8.2)
[2021-01-18 05:56] LABS: Bilirubin,Total 21.6 MG/DL (0.20-1.00)
[2021-01-18] MEDS: metroNIDAZOLE INJ 500 MG/100 ML PREMIX IV SCH ×3 (06:13→23:14)
[2021-01-18] MEDS: LACTATED RINGERS 1,000 ML IV SCH ×5 (06:36→23:14)
[2021-01-18] MEDS: PANTOPRAZOLE 40 MG VIAL IV SCH (08:01)
[2021-01-18] MEDS: PHYTONADIONE 5 MG/5 ML ORAL.SYR PO SCH ×2 (08:01→20:27)
[2021-01-18] MEDS: LACTULOSE 20 GM/30 ML UDCUP PO SCH ×2 (08:01→20:27)
[2021-01-18] MEDS: methylPREDNISolone SOD SUC 40 MG/1 ML VIAL IV SCH ×2 (08:01→20:28)
[2021-01-18] MEDS: SKIN HEALING OINT (AQUAPHOR) 50 GM TUBE TOP SCH (08:02)
[2021-01-18] MEDS: POTASSIUM CHLORIDE 20 MEQ TABLET PO PRN (08:02)
[2021-01-18] MEDS: TAMSULOSIN 0.4 MG CAPSULE PO SCH (20:30)
[2021-01-19] MEDS: MEROPENEM 500 MG in SODIUM CHLORIDE 0.9% 100 ML IV SCH ×4 (02:59→20:40)
[2021-01-19 03:44] LABS: ABG Base Excess -0.4 MMOL/L (-2.5-2.5); ABG HCO3 23.8 MMOL/L (20-26); ABG Oxygen Saturation 83.1 % (95-100); ABG PCO2 38.9 MM HG (35-48); ABG PH 7.401 (7.35-7.45); ABG PO2 55.2 MM HG (80-95); ABG TCO2 21.9 MMOL/L (23-27); Allen Test Positive; Pt O2 Delivery Device Ventilator
[2021-01-19] MEDS: LACTATED RINGERS 1,000 ML IV SCH ×2 (06:02→06:34)
[2021-01-19 06:06] LABS: Basophils # 0.1 10*3/uL (0.0-0.2); Basophils % 0.9 % (0.0-0.8); Hematocrit 30.2 VOL% (42.0-52.0); Hemoglobin 10.1 GM/DL (14.0-18.0); Immature Granulocytes % 4.9 %; Immature Granulocytes Absolute 0.66 #; Lymphocytes # 0.9 10*3/uL (1.4-4.0); Lymphocytes % 6.6 % (21.2-54.2); Mean Corpuscular HGB Conc 33.4 GM/DL (32-36); Mean Corpuscular Volume 98.7 FL (87-102); Mean Platelet Volume 10.2 FL (9.6-12.0); NRBC # 0.25 10*3/uL; Neutrophils % 80.6 % (38.7-73.9); Red Blood Count 3.06 MC/CUMM (3.8-5.5); Red Cell Distribution Width 23.8 % (9.3-17.3)
[2021-01-19 06:13] LABS: White Blood Count 13.6 T/CUMM (4-12)
[2021-01-19 06:14] LABS: Platelet Count 65 T/CUMM (130-400)
[2021-01-19] MEDS: metroNIDAZOLE INJ 500 MG/100 ML PREMIX IV SCH ×3 (06:34→23:09)
[2021-01-19 06:37] LABS: Albumin 1.4 G/DL (3.4-5.0); Calcium 8.9 MG/DL (8.5-10.1); Osmolality,Calculated 306.7 MOS/KG (273-304); Potassium 2.9 MMOL/L (3.5-5.1); Total Protein 6.1 G/DL (6.4-8.2)
[2021-01-19 06:39] LABS: Band Neutrophils 29 % (0-10); Lymphocytes 4 % (20-55); Nucleated Red Blood Cells 5 (0-5); Segmented Neutrophils 62 % (50-85); Total Cells Counted 100
[2021-01-19 06:40] LABS: Anisocytosis 2+; Basophilic Stippling Slight; Burr Cells Few; Macrocytosis 1+; Platelet Estimate Decreased; Poikilocytosis Slight; Target Cells Few
[2021-01-19 06:41] LABS: Atypical Lymphocytes Few
[2021-01-19 06:44] LABS: Bilirubin,Total 19.1 MG/DL (0.20-1.00)
[2021-01-19] MEDS: POTASSIUM CHLORIDE 20 MEQ TABLET PO PRN ×4 (07:15→13:34)
[2021-01-19] MEDS: PANTOPRAZOLE 40 MG VIAL IV SCH (08:56)
[2021-01-19] MEDS: PHYTONADIONE 5 MG/5 ML ORAL.SYR PO SCH ×2 (08:56→20:40)
[2021-01-19] MEDS: LACTULOSE 20 GM/30 ML UDCUP PO SCH ×2 (08:56→20:39)
[2021-01-19] MEDS: methylPREDNISolone SOD SUC 40 MG/1 ML VIAL IV SCH ×2 (08:57→20:40)
[2021-01-19] MEDS: SKIN HEALING OINT (AQUAPHOR) 50 GM TUBE TOP SCH (09:01)
[2021-01-19] MEDS: FUROSEMIDE 40 MG/4 ML VIAL IV SCH ×2 (09:01→15:31)
[2021-01-19] MEDS: FAMOTIDINE 8 MG/ML 50 ML/BOTTLE PER TUBE SCH ×5 (11:56→23:10)
[2021-01-19] MEDS: TAMSULOSIN 0.4 MG CAPSULE PO SCH (20:39)
[2021-01-19] MEDS: MIDAZOLAM 100 MG in SODIUM CHLORIDE 0.9% 80 ML IV PRN (22:10)
[2021-01-19] MEDS: POTASSIUM CHLORIDE RIDER 10 MEQ/100 ML PREMIX IV PRN (23:09)
[2021-01-19] MEDS: POTASSIUM BICARB EFFERVESCENT 20 MEQ TAB.EFF PER TUBE PRN (23:09)
[2021-01-20] MEDS: MEROPENEM 500 MG in SODIUM CHLORIDE 0.9% 100 ML IV SCH ×4 (01:15→20:20)
[2021-01-20] MEDS: POTASSIUM BICARB EFFERVESCENT 20 MEQ TAB.EFF PER TUBE PRN ×4 (01:15→08:03)
[2021-01-20 04:04] LABS: ABG Base Excess 6.8 MMOL/L (-2.5-2.5); ABG HCO3 30.5 MMOL/L (20-26); ABG Oxygen Saturation 95.8 % (95-100); ABG PCO2 41.3 MM HG (35-48); ABG PH 7.482 (7.35-7.45); ABG PO2 81.4 MM HG (80-95); ABG TCO2 27.7 MMOL/L (23-27)
[2021-01-20] MEDS: metroNIDAZOLE INJ 500 MG/100 ML PREMIX IV SCH ×3 (06:02→23:31)
[2021-01-20 06:15] LABS: Basophils # 0.1 10*3/uL (0.0-0.2); Basophils % 0.5 % (0.0-0.8); Hematocrit 33.3 VOL% (42.0-52.0); Hemoglobin 10.8 GM/DL (14.0-18.0); Immature Granulocytes % 5.7 %; Immature Granulocytes Absolute 0.76 #; Lymphocytes # 0.9 10*3/uL (1.4-4.0); Lymphocytes % 7.1 % (21.2-54.2); Mean Corpuscular HGB Conc 32.4 GM/DL (32-36); Mean Corpuscular Volume 97.9 FL (87-102); Mean Platelet Volume 9.7 FL (9.6-12.0); Monocytes % 6.6 % (1.7-12.7); NRBC # 0.32 10*3/uL; Neutrophils % 80.1 % (38.7-73.9); White Blood Count 13.3 T/CUMM (4-12)
[2021-01-20 06:16] LABS: Platelet Count 67 T/CUMM (130-400)
[2021-01-20 06:22] LABS: INR 1.9; PT Patient Result 20.7 SECS (10.5-12.0)
[2021-01-20 06:31] LABS: Albumin 1.6 G/DL (3.4-5.0); Calcium 9.4 MG/DL (8.5-10.1); Potassium 3.6 MMOL/L (3.5-5.1); Total Protein 6.9 G/DL (6.4-8.2)
[2021-01-20 06:32] LABS: Bilirubin,Total 24.4 MG/DL (0.20-1.00)
[2021-01-20 06:36] LABS: Band Neutrophils 5 % (0-10); Lymphocytes 7 % (20-55); Nucleated Red Blood Cells 2 (0-5); Platelet Estimate Decreased; Segmented Neutrophils 79 % (50-85); Total Cells Counted 100
[2021-01-20] MEDS: PHYTONADIONE 5 MG/5 ML ORAL.SYR PO SCH ×2 (08:02→20:21)
[2021-01-20] MEDS: methylPREDNISolone SOD SUC 40 MG/1 ML VIAL IV SCH ×2 (08:03→20:22)
[2021-01-20] MEDS: FUROSEMIDE 40 MG/4 ML VIAL IV SCH ×2 (08:03→15:01)
[2021-01-20] MEDS: LACTULOSE 20 GM/30 ML UDCUP PO SCH ×2 (08:03→20:21)
[2021-01-20] MEDS: PANTOPRAZOLE 40 MG VIAL IV SCH (08:03)
[2021-01-20] MEDS: SKIN HEALING OINT (AQUAPHOR) 50 GM TUBE TOP SCH (08:04)
[2021-01-20] MEDS: ALBUMIN 25% 12.5 GM/50 ML VIAL IV SCH ×2 (10:30→20:30)
[2021-01-20 11:26] LABS: ABG Base Excess 8.9 MMOL/L (-2.5-2.5); ABG HCO3 32.6 MMOL/L (20-26); ABG Oxygen Saturation 97.6 % (95-100); ABG PH 7.527 (7.35-7.45); ABG PO2 97.9 MM HG (80-95); ABG TCO2 27.3 MMOL/L (23-27); Allen Test Positive; Pt O2 Delivery Device Ventilator
[2021-01-20] MEDS: TAMSULOSIN 0.4 MG CAPSULE PO SCH (20:21)
[2021-01-21] MEDS: MEROPENEM 500 MG in SODIUM CHLORIDE 0.9% 100 ML IV SCH ×4 (01:37→19:46)
[2021-01-21 03:58] LABS: ABG Base Excess 14.8 MMOL/L (-2.5-2.5); ABG HCO3 38.7 MMOL/L (20-26); ABG Oxygen Saturation 99.7 % (95-100); ABG PCO2 42.6 MM HG (35-48); ABG PH 7.567 (7.35-7.45); ABG TCO2 35.4 MMOL/L (23-27)
[2021-01-21] MEDS: metroNIDAZOLE INJ 500 MG/100 ML PREMIX IV SCH ×3 (06:33→22:32)
[2021-01-21 07:37] LABS: Basophils % 0.2 % (0.0-0.8); Hematocrit 29.5 VOL% (42.0-52.0); Hemoglobin 9.6 GM/DL (14.0-18.0); Immature Granulocytes Absolute 0.37 #; Lymphocytes # 0.9 10*3/uL (1.4-4.0); Lymphocytes % 7.2 % (21.2-54.2); Mean Corpuscular HGB Conc 32.5 GM/DL (32-36); Mean Corpuscular Volume 99.3 FL (87-102); Mean Platelet Volume 11.2 FL (9.6-12.0); Monocytes % 3.6 % (1.7-12.7); NRBC # 0.25 10*3/uL; Red Blood Count 2.97 MC/CUMM (3.8-5.5); Red Cell Distribution Width 23.4 % (9.3-17.3); White Blood Count 12.4 T/CUMM (4-12)
[2021-01-21 07:39] LABS: Platelet Count 46 T/CUMM (130-400)
[2021-01-21 07:56] LABS: Calcium 8.9 MG/DL (8.5-10.1); Osmolality,Calculated 306.9 MOS/KG (273-304)
[2021-01-21 07:58] LABS: Potassium 2.5 MMOL/L (3.5-5.1)
[2021-01-21 08:06] LABS: Band Neutrophils 1 % (0-10); Lymphocytes 9 % (20-55); Nucleated Red Blood Cells 1 (0-5); Platelet Estimate Decreased; Segmented Neutrophils 87 % (50-85); Total Cells Counted 100
[2021-01-21 08:07] LABS: Hypochromasia 1+
[2021-01-21] MEDS: POTASSIUM CHLORIDE RIDER 10 MEQ/100 ML PREMIX IV PRN ×8 (08:27→22:50)
[2021-01-21] MEDS: FUROSEMIDE 40 MG/4 ML VIAL IV SCH (09:16)
[2021-01-21] MEDS: methylPREDNISolone SOD SUC 40 MG/1 ML VIAL IV SCH ×2 (09:25→21:13)
[2021-01-21] MEDS: PANTOPRAZOLE 40 MG VIAL IV SCH (09:26)
[2021-01-21] MEDS: ALBUMIN 25% 12.5 GM/50 ML VIAL IV SCH ×2 (09:26→21:13)
[2021-01-21] MEDS: PHYTONADIONE 5 MG/5 ML ORAL.SYR PO SCH ×2 (09:27→21:14)
[2021-01-21] MEDS: LACTULOSE 20 GM/30 ML UDCUP PO SCH ×2 (09:27→21:12)
[2021-01-21] MEDS: SKIN HEALING OINT (AQUAPHOR) 50 GM TUBE TOP SCH (09:29)
[2021-01-21] MEDS ORDERED: AMINO ACIDS/DEXT/LYTES 5-20% 2,000 ML IV ONE (17:00)
[2021-01-21] MEDS: TAMSULOSIN 0.4 MG CAPSULE PO SCH (21:12)
[2021-01-21] MEDS: POTASSIUM BICARB EFFERVESCENT 20 MEQ TAB.EFF PER TUBE PRN (21:13)
[2021-01-22 04:25] LABS: ABG Base Excess 12.1 MMOL/L (-2.5-2.5); ABG HCO3 35.9 MMOL/L (20-26); ABG Oxygen Saturation 99.6 % (95-100); ABG PCO2 37.9 MM HG (35-48); ABG PH 7.576 (7.35-7.45); ABG TCO2 31.3 MMOL/L (23-27)
[2021-01-22 05:28] LABS: Osmolality,Calculated 299.3 MOS/KG (273-304); Potassium 3.2 MMOL/L (3.5-5.1); Total Protein 6.4 G/DL (6.4-8.2)
[2021-01-22 05:36] LABS: Bilirubin,Total 27.6 MG/DL (0.20-1.00)
[2021-01-22] MEDS: POTASSIUM BICARB EFFERVESCENT 20 MEQ TAB.EFF PER TUBE PRN ×2 (06:20→08:39)
[2021-01-22 08:01] LABS: Basophils % 0.2 % (0.0-0.8); Hemoglobin 10.4 GM/DL (14.0-18.0); Immature Granulocytes % 2.4 %; Immature Granulocytes Absolute 0.39 #; Mean Corpuscular HGB Conc 33.5 GM/DL (32-36); Mean Corpuscular Volume 97.2 FL (87-102); Mean Platelet Volume 11.2 FL (9.6-12.0); Monocytes % 3.4 % (1.7-12.7); NRBC # 0.19 10*3/uL; Platelet Count 42 T/CUMM (130-400); Red Blood Count 3.19 MC/CUMM (3.8-5.5); Red Cell Distribution Width 22.7 % (9.3-17.3)
[2021-01-22 08:18] LABS: Lymphocytes 4 % (20-55); Nucleated Red Blood Cells 1 (0-5); Segmented Neutrophils 91 % (50-85); Total Cells Counted 100
[2021-01-22 08:19] LABS: Hypochromasia 1+; Target Cells Few
[2021-01-22 08:20] LABS: Anisocytosis 1+; Macrocytosis 1+; Platelet Estimate Decreased
[2021-01-22] MEDS: methylPREDNISolone SOD SUC 40 MG/1 ML VIAL IV SCH ×2 (08:38→20:39)
[2021-01-22] MEDS: SKIN HEALING OINT (AQUAPHOR) 50 GM TUBE TOP SCH (08:39)
[2021-01-22] MEDS: ALBUMIN 25% 12.5 GM/50 ML VIAL IV SCH ×2 (08:39→20:39)
[2021-01-22] MEDS: PANTOPRAZOLE 40 MG VIAL IV SCH (08:39)
[2021-01-22] MEDS: LACTULOSE 20 GM/30 ML UDCUP PO SCH ×2 (09:04→20:39)
[2021-01-22] MEDS: PHYTONADIONE 5 MG/5 ML ORAL.SYR PO SCH ×2 (09:04→20:39)
[2021-01-22] MEDS: FLUCONAZOLE 40 MG/ML 35 ML/BOTTLE PO SCH (11:06)
[2021-01-22] MEDS: ALBUTEROL/IPRATROPIUM 3 ML NEB RESP TX SCH ×2 (13:08→20:03)
[2021-01-22] MEDS ORDERED: MULTIVITAMIN INJ 10 ML in AMINO ACIDS/DEXT/LYTES 4.25-5% 2,000 ML IV SCH (17:00)
[2021-01-22] MEDS ORDERED: AMINO ACIDS/DEXT/LYTES 5-20% 2,000 ML IV SCH (17:00)
[2021-01-22] MEDS: INSULIN REGULAR 100 UNIT/ML SUBCUT SCH ×2 (17:27→23:53)
[2021-01-22] MEDS: DEXMEDETOMIDINE 200 MCG in SODIUM CHLORIDE 0.9% 48 ML IV PRN (20:05)
[2021-01-22] MEDS: TAMSULOSIN 0.4 MG CAPSULE PO SCH (20:39)
[2021-01-23 05:10] LABS: ABG Base Excess 11.7 MMOL/L (-2.5-2.5); ABG HCO3 34.3 MMOL/L (20-26); ABG Oxygen Saturation 98.4 % (95-100); ABG PCO2 36.7 MM HG (35-48); ABG PH 7.588 (7.35-7.45); ABG PO2 109.9 MM HG (80-95); ABG TCO2 35.4 MMOL/L (23-27); Allen Test Positive; Pt O2 Delivery Device Ventilator
[2021-01-23] MEDS: DEXMEDETOMIDINE 200 MCG in SODIUM CHLORIDE 0.9% 48 ML IV PRN ×3 (05:30→16:53)
[2021-01-23 05:49] LABS: Basophils % 0.1 % (0.0-0.8); Hemoglobin 10.3 GM/DL (14.0-18.0); Immature Granulocytes % 0.9 %; Immature Granulocytes Absolute 0.16 #; Lymphocytes # 0.7 10*3/uL (1.4-4.0); Lymphocytes % 4.1 % (21.2-54.2); Mean Corpuscular HGB Conc 33.2 GM/DL (32-36); Mean Corpuscular Volume 98.4 FL (87-102); Mean Platelet Volume 12.2 FL (9.6-12.0); Monocytes % 2.5 % (1.7-12.7); NRBC # 0.15 10*3/uL; Neutrophils % 92.4 % (38.7-73.9); Red Blood Count 3.15 MC/CUMM (3.8-5.5); Red Cell Distribution Width 22.5 % (9.3-17.3)
[2021-01-23] MEDS: INSULIN REGULAR 100 UNIT/ML SUBCUT SCH ×3 (06:02→18:45)
[2021-01-23 06:05] LABS: Platelet Count 36 T/CUMM (130-400)
[2021-01-23 06:18] LABS: Hypochromasia Slight; Lymphocytes 3 % (20-55); Nucleated Red Blood Cells 1 (0-5); Platelet Estimate Decreased; Segmented Neutrophils 95 % (50-85); Total Cells Counted 100
[2021-01-23 06:19] LABS: Macrocytosis Slight
[2021-01-23 06:40] LABS: Calcium 9.2 MG/DL (8.5-10.1); Osmolality,Calculated 298.6 MOS/KG (273-304); Potassium 2.6 MMOL/L (3.5-5.1); Total Protein 5.9 G/DL (6.4-8.2)
[2021-01-23 06:55] LABS: Bilirubin,Total 27.9 MG/DL (0.20-1.00)
[2021-01-23] MEDS: ALBUTEROL/IPRATROPIUM 3 ML NEB RESP TX SCH ×4 (07:32→19:31)
[2021-01-23] MEDS ORDERED: SODIUM CHLORIDE 0.9% 1,000 ML IV PRN (07:34)
[2021-01-23] MEDS: POTASSIUM CHLORIDE 20 MEQ TABLET PO PRN (08:00)
[2021-01-23 08:11] LABS: INR 2.1; PT Patient Result 22.1 SECS (10.5-12.0)
[2021-01-23] MEDS: ALBUMIN 25% 12.5 GM/50 ML VIAL IV SCH (08:53)
[2021-01-23] MEDS: FLUCONAZOLE 40 MG/ML 35 ML/BOTTLE PO SCH (08:54)
[2021-01-23] MEDS: SKIN HEALING OINT (AQUAPHOR) 50 GM TUBE TOP SCH (08:54)
[2021-01-23] MEDS: PHYTONADIONE 5 MG/5 ML ORAL.SYR PO SCH (08:54)
[2021-01-23] MEDS: methylPREDNISolone SOD SUC 40 MG/1 ML VIAL IV SCH ×2 (08:54→20:18)
[2021-01-23] MEDS: LACTULOSE 20 GM/30 ML UDCUP PO SCH ×2 (08:54→20:18)
[2021-01-23] MEDS: FAMOTIDINE 20 MG/2 ML VIAL IV SCH ×2 (09:52→20:18)
[2021-01-23] MEDS ORDERED: POTASSIUM BICARB EFFERVESCENT 20 MEQ TAB.EFF PO ONE (15:42)
[2021-01-23] MEDS: TAMSULOSIN 0.4 MG CAPSULE PO SCH (20:18)
[2021-01-23] MEDS: POTASSIUM CHLORIDE 20 MEQ TABLET PO SCH (20:18)
[2021-01-24] MEDS: INSULIN REGULAR 100 UNIT/ML SUBCUT SCH ×4 (00:13→19:05)
[2021-01-24] MEDS: DEXMEDETOMIDINE 200 MCG in SODIUM CHLORIDE 0.9% 48 ML IV PRN ×2 (00:13→06:35)
[2021-01-24 03:36] LABS: ABG Base Excess 12.5 MMOL/L (-2.5-2.5); ABG PCO2 32.4 MM HG (35-48); ABG PO2 81.7 MM HG (80-95)
[2021-01-24 03:43] LABS: ABG PH 7.639 (7.35-7.45)
[2021-01-24 04:48] LABS: Basophils # 0.1 10*3/uL (0.0-0.2); Basophils % 0.2 % (0.0-0.8); Hematocrit 32.1 VOL% (42.0-52.0); Hemoglobin 10.7 GM/DL (14.0-18.0); Immature Granulocytes Absolute 0.24 #; Lymphocytes # 0.5 10*3/uL (1.4-4.0); Mean Corpuscular HGB Conc 33.3 GM/DL (32-36); Mean Corpuscular Volume 98.2 FL (87-102); Mean Platelet Volume 11.9 FL (9.6-12.0); Monocytes % 2.5 % (1.7-12.7); Neutrophils % 94.3 % (38.7-73.9); Red Blood Count 3.27 MC/CUMM (3.8-5.5); Red Cell Distribution Width 22.4 % (9.3-17.3)
[2021-01-24 04:56] LABS: Platelet Count 75 T/CUMM (130-400)
[2021-01-24 05:06] LABS: Lymphocytes 1 % (20-55); Platelet Estimate Decreased; Segmented Neutrophils 97 % (50-85); Total Cells Counted 100
[2021-01-24 05:07] LABS: Hypochromasia Slight
[2021-01-24 05:08] LABS: Macrocytosis Slight
[2021-01-24] MEDS: ALBUTEROL/IPRATROPIUM 3 ML NEB RESP TX SCH ×4 (05:09→19:41)
[2021-01-24 05:16] LABS: Albumin 2.1 G/DL (3.4-5.0); Calcium 9.3 MG/DL (8.5-10.1); Osmolality,Calculated 295.7 MOS/KG (273-304); Potassium 3.1 MMOL/L (3.5-5.1); Total Protein 6.1 G/DL (6.4-8.2)
[2021-01-24 05:18] LABS: Bilirubin,Total 27.4 MG/DL (0.20-1.00)
[2021-01-24] MEDS ORDERED: ACETAMINOPHEN 325 MG/10.15 ML UDCUP PO ONE (05:28)
[2021-01-24] MEDS: POTASSIUM CHLORIDE 20 MEQ TABLET PO PRN ×4 (05:30→11:44)
[2021-01-24] MEDS: POTASSIUM BICARB EFFERVESCENT 20 MEQ TAB.EFF PER TUBE PRN ×5 (05:30→21:40)
[2021-01-24] MEDS: FAMOTIDINE 20 MG/2 ML VIAL IV SCH ×2 (08:16→19:13)
[2021-01-24] MEDS: methylPREDNISolone SOD SUC 40 MG/1 ML VIAL IV SCH ×2 (08:16→22:07)
[2021-01-24] MEDS: SKIN HEALING OINT (AQUAPHOR) 50 GM TUBE TOP SCH (08:17)
[2021-01-24] MEDS: FLUCONAZOLE 40 MG/ML 35 ML/BOTTLE PO SCH (08:17)
[2021-01-24] MEDS: IBUPROFEN 100 MG/5 ML UDCUP PO PRN (08:17)
[2021-01-24] MEDS: POTASSIUM CHLORIDE 20 MEQ TABLET PO SCH ×2 (08:18→21:39)
[2021-01-24] MEDS: LACTULOSE 20 GM/30 ML UDCUP PO SCH ×2 (08:18→21:39)
[2021-01-24] MEDS: cefTRIAXone 1,000 MG in SODIUM CHLORIDE 0.9% 100 ML IV SCH (08:31)
[2021-01-24 08:57] LABS: Amorphous Crystals,Urine Occasional /HPF (Few); Bacteria,Urine Occasional /HPF (Few); Blood, Urine Negative (Negative); Glucose,Urine (UA) Negative (Negative); Ketones,Urine Negative (Negative); Mucus,Urine Occasional /LPF (Occasional); Nitrite,Urine Negative (Negative); Protein,Urine Negative; RBC,Urine 1 /HPF (0-4); Squamous Epithelial Cell,Urine Occasional /HPF (0-10); Urine Appearance CLEAR (Clear); Urine Color Amber (Yellow); Urine Specific Gravity 1.017 (1.001-1.035)
[2021-01-24 08:58] LABS: Bilirubin,Urine Moderate mg/dL (Negative)
[2021-01-24] MEDS: VANCOMYCIN INJ 1,000 MG in SODIUM CHLORIDE 0.9% 250 ML IV SCH ×2 (09:46→22:09)
[2021-01-24] MEDS: SPIRONOLACTONE 25 MG TABLET PO SCH ×2 (11:44→21:39)
[2021-01-24] MEDS ORDERED: FAT EMULSION 20% 250 ML IV SCH (14:00)
[2021-01-24 15:51] LABS: ABG Base Excess 4.2 MMOL/L (-2.5-2.5); ABG HCO3 28.2 MMOL/L (20-26); ABG Oxygen Saturation 98.8 % (95-100); ABG PCO2 30.7 MM HG (35-48); ABG PH 7.541 (7.35-7.45); ABG TCO2 23.6 MMOL/L (23-27)
[2021-01-24] MEDS: TAMSULOSIN 0.4 MG CAPSULE PO SCH (21:39)
[2021-01-25] MEDS: IBUPROFEN 100 MG/5 ML UDCUP PO PRN (00:33)
[2021-01-25] MEDS: INSULIN REGULAR 100 UNIT/ML SUBCUT SCH ×4 (00:39→17:59)
[2021-01-25] MEDS: ALBUTEROL/IPRATROPIUM 3 ML NEB RESP TX SCH ×4 (01:38→19:00)
[2021-01-25 04:16] LABS: ABG Base Excess 1.3 MMOL/L (-2.5-2.5); ABG HCO3 25.6 MMOL/L (20-26); ABG PCO2 30.8 MM HG (35-48); ABG PH 7.499 (7.35-7.45); ABG TCO2 21.6 MMOL/L (23-27)
[2021-01-25 04:24] LABS: Basophils % 0.2 % (0.0-0.8); Hematocrit 31.4 VOL% (42.0-52.0); Hemoglobin 10.6 GM/DL (14.0-18.0); Immature Granulocytes % 0.9 %; Immature Granulocytes Absolute 0.23 #; Lymphocytes # 0.5 10*3/uL (1.4-4.0); Lymphocytes % 1.9 % (21.2-54.2); Mean Corpuscular HGB Conc 33.8 GM/DL (32-36); Mean Corpuscular Volume 99.7 FL (87-102); Mean Platelet Volume 12.5 FL (9.6-12.0); Monocytes % 2.6 % (1.7-12.7); NRBC # 0.04 10*3/uL; Neutrophils % 94.4 % (38.7-73.9); Platelet Count 78 T/CUMM (130-400); Red Blood Count 3.15 MC/CUMM (3.8-5.5); Red Cell Distribution Width 23.2 % (9.3-17.3); White Blood Count 25.8 T/CUMM (4-12)
[2021-01-25 04:56] LABS: Calcium 9.5 MG/DL (8.5-10.1); Potassium 2.9 MMOL/L (3.5-5.1); Total Protein 5.8 G/DL (6.4-8.2)
[2021-01-25 05:02] LABS: Band Neutrophils 1 % (0-10); Lymphocytes 5 % (20-55); Platelet Estimate Decreased; Segmented Neutrophils 93 % (50-85); Total Cells Counted 100
[2021-01-25 05:06] LABS: Bilirubin,Total 29.3 MG/DL (0.20-1.00)
[2021-01-25] MEDS: POTASSIUM BICARB EFFERVESCENT 20 MEQ TAB.EFF PER TUBE PRN ×4 (05:16→16:19)
[2021-01-25] MEDS: methylPREDNISolone SOD SUC 40 MG/1 ML VIAL IV SCH ×2 (08:05→21:41)
[2021-01-25] MEDS: FAMOTIDINE 20 MG/2 ML VIAL IV SCH ×2 (08:05→21:40)
[2021-01-25] MEDS: cefTRIAXone 1,000 MG in SODIUM CHLORIDE 0.9% 100 ML IV SCH (08:05)
[2021-01-25] MEDS: FLUCONAZOLE 40 MG/ML 35 ML/BOTTLE PO SCH (08:06)
[2021-01-25] MEDS: VANCOMYCIN INJ 1,000 MG in SODIUM CHLORIDE 0.9% 250 ML IV SCH ×2 (08:06→21:41)
[2021-01-25] MEDS: LACTULOSE 20 GM/30 ML UDCUP PO SCH ×2 (08:07→21:40)
[2021-01-25] MEDS: SPIRONOLACTONE 25 MG TABLET PO SCH ×2 (08:07→21:40)
[2021-01-25] MEDS: POTASSIUM CHLORIDE 20 MEQ TABLET PO SCH ×2 (08:09→21:41)
[2021-01-25] MEDS: SKIN HEALING OINT (AQUAPHOR) 50 GM TUBE TOP SCH (08:10)
[2021-01-25] MEDS: INSULIN GLARGINE 100 UNIT/ML SUBCUT SCH (08:17)
[2021-01-25] MEDS: TAMSULOSIN 0.4 MG CAPSULE PO SCH (21:41)
[2021-01-26] MEDS: INSULIN REGULAR 100 UNIT/ML SUBCUT SCH ×4 (01:10→18:47)
[2021-01-26] MEDS: ALBUTEROL/IPRATROPIUM 3 ML NEB RESP TX SCH ×4 (01:30→19:00)
[2021-01-26 03:43] LABS: ABG Base Excess 0.7 MMOL/L (-2.5-2.5); ABG HCO3 24.9 MMOL/L (20-26); ABG Oxygen Saturation 90.6 % (95-100); ABG PCO2 31.5 MM HG (35-48); ABG PH 7.482 (7.35-7.45); ABG PO2 64.2 MM HG (80-95); ABG TCO2 21.1 MMOL/L (23-27)
[2021-01-26 04:52] LABS: Basophils # 0.1 10*3/uL (0.0-0.2); Basophils % 0.2 % (0.0-0.8); Hematocrit 32.7 VOL% (42.0-52.0); Immature Granulocytes % 1.1 %; Immature Granulocytes Absolute 0.31 #; Lymphocytes # 0.5 10*3/uL (1.4-4.0); Lymphocytes % 1.7 % (21.2-54.2); Mean Corpuscular HGB Conc 33.6 GM/DL (32-36); Mean Corpuscular Volume 99.1 FL (87-102); Mean Platelet Volume 11.9 FL (9.6-12.0); Monocytes % 3.3 % (1.7-12.7); NRBC # 0.06 10*3/uL; Neutrophils % 93.7 % (38.7-73.9); Platelet Count 115 T/CUMM (130-400); Red Cell Distribution Width 23.3 % (9.3-17.3); White Blood Count 28.4 T/CUMM (4-12)
[2021-01-26 05:03] LABS: INR 1.8; PT Patient Result 19.5 SECS (10.5-12.0)
[2021-01-26 05:28] LABS: Calcium 9.8 MG/DL (8.5-10.1); Osmolality,Calculated 290.8 MOS/KG (273-304); Potassium 3.2 MMOL/L (3.5-5.1); Total Protein 5.9 G/DL (6.4-8.2)
[2021-01-26 05:30] LABS: Bilirubin,Total 30.1 MG/DL (0.20-1.00)
[2021-01-26 06:22] LABS: Band Neutrophils 1 % (0-10); Lymphocytes 2 % (20-55); Nucleated Red Blood Cells 1 (0-5); Platelet Estimate Normal; Segmented Neutrophils 94 % (50-85); Total Cells Counted 100
[2021-01-26] MEDS: SPIRONOLACTONE 25 MG TABLET PO SCH ×2 (08:20→21:01)
[2021-01-26] MEDS: FLUCONAZOLE 40 MG/ML 35 ML/BOTTLE PO SCH (09:00)
[2021-01-26] MEDS: SKIN HEALING OINT (AQUAPHOR) 50 GM TUBE TOP SCH (09:00)
[2021-01-26] MEDS: POTASSIUM CHLORIDE 20 MEQ TABLET PO SCH ×2 (09:00→21:01)
[2021-01-26 09:23] LABS: Cholesterol Crystals None Seen /LPF
[2021-01-26 09:54] LABS: Lymphocytes,Synovial Fluid 43 %; Neutrophils,Synovial Fluid 57 %
[2021-01-26] MEDS: methylPREDNISolone SOD SUC 40 MG/1 ML VIAL IV SCH ×2 (10:42→21:02)
[2021-01-26] MEDS: cefTRIAXone 1,000 MG in SODIUM CHLORIDE 0.9% 100 ML IV SCH (10:42)
[2021-01-26] MEDS: FAMOTIDINE 20 MG/2 ML VIAL IV SCH ×2 (10:42→21:05)
[2021-01-26] MEDS: INSULIN GLARGINE 100 UNIT/ML SUBCUT SCH (10:43)
[2021-01-26] MEDS: LACTULOSE 20 GM/30 ML UDCUP PO SCH ×2 (10:43→21:01)
[2021-01-26] MEDS: VANCOMYCIN INJ 1,000 MG in SODIUM CHLORIDE 0.9% 250 ML IV SCH ×2 (10:51→21:09)
[2021-01-26] MEDS: TAMSULOSIN 0.4 MG CAPSULE PO SCH (21:00)
[2021-01-27] MEDS: INSULIN REGULAR 100 UNIT/ML SUBCUT SCH ×5 (00:51→23:40)
[2021-01-27] MEDS: ALBUTEROL/IPRATROPIUM 3 ML NEB RESP TX SCH ×4 (01:20→19:09)
[2021-01-27 04:02] LABS: ABG Base Excess -1.3 MMOL/L (-2.5-2.5); ABG Oxygen Saturation 82.1 % (95-100); ABG PCO2 29.9 MM HG (35-48); ABG PH 7.464 (7.35-7.45); ABG PO2 52.7 MM HG (80-95); ABG TCO2 19.2 MMOL/L (23-27)
[2021-01-27 05:37] LABS: Basophils # 0.1 10*3/uL (0.0-0.2); Basophils % 0.3 % (0.0-0.8); Hematocrit 35.1 VOL% (42.0-52.0); Hemoglobin 11.8 GM/DL (14.0-18.0); Immature Granulocytes % 2.1 %; Immature Granulocytes Absolute 0.48 #; Lymphocytes # 0.3 10*3/uL (1.4-4.0); Lymphocytes % 1.2 % (21.2-54.2); Mean Corpuscular HGB Conc 33.6 GM/DL (32-36); Mean Platelet Volume 12.2 FL (9.6-12.0); Monocytes % 2.7 % (1.7-12.7); NRBC # 0.14 10*3/uL; Neutrophils % 93.7 % (38.7-73.9); Platelet Count 114 T/CUMM (130-400); Red Blood Count 3.51 MC/CUMM (3.8-5.5); Red Cell Distribution Width 23.9 % (9.3-17.3); White Blood Count 22.9 T/CUMM (4-12)
[2021-01-27 05:59] LABS: Albumin 1.8 G/DL (3.4-5.0); Calcium 10.1 MG/DL (8.5-10.1); Osmolality,Calculated 298.3 MOS/KG (273-304); Potassium 3.6 MMOL/L (3.5-5.1); Total Protein 5.4 G/DL (6.4-8.2)
[2021-01-27 06:01] LABS: Bilirubin,Total 27.4 MG/DL (0.20-1.00)
[2021-01-27 06:11] LABS: Anisocytosis 2+; Band Neutrophils 19 % (0-10); Lymphocytes 2 % (20-55); Nucleated Red Blood Cells 3 (0-5); Platelet Estimate Adequate; Segmented Neutrophils 77 % (50-85); Total Cells Counted 100
[2021-01-27 06:12] LABS: Burr Cells 1+; Macrocytosis 1+; Polychromasia Slight; Target Cells Few
[2021-01-27] MEDS: methylPREDNISolone SOD SUC 40 MG/1 ML VIAL IV SCH ×2 (08:18→20:42)
[2021-01-27] MEDS: cefTRIAXone 1,000 MG in SODIUM CHLORIDE 0.9% 100 ML IV SCH (08:18)
[2021-01-27] MEDS: FAMOTIDINE 20 MG/2 ML VIAL IV SCH ×2 (08:18→20:45)
[2021-01-27] MEDS: SPIRONOLACTONE 25 MG TABLET PO SCH ×2 (08:19→20:41)
[2021-01-27] MEDS: POTASSIUM CHLORIDE 20 MEQ TABLET PO SCH ×2 (08:19→20:41)
[2021-01-27] MEDS: INSULIN GLARGINE 100 UNIT/ML SUBCUT SCH (08:19)
[2021-01-27] MEDS: VANCOMYCIN INJ 1,000 MG in SODIUM CHLORIDE 0.9% 250 ML IV SCH ×2 (08:19→20:50)
[2021-01-27] MEDS: LACTULOSE 20 GM/30 ML UDCUP PO SCH ×2 (08:19→20:42)
[2021-01-27] MEDS: FLUCONAZOLE 40 MG/ML 35 ML/BOTTLE PO SCH (08:19)
[2021-01-27] MEDS: SKIN HEALING OINT (AQUAPHOR) 50 GM TUBE TOP SCH (08:19)
[2021-01-27] MEDS: PENTOXIFYLLINE 400 MG TABLET PO SCH ×3 (09:46→20:41)
[2021-01-27] MEDS: TAMSULOSIN 0.4 MG CAPSULE PO SCH (20:41)
[2021-01-28] MEDS: ALBUTEROL/IPRATROPIUM 3 ML NEB RESP TX SCH ×4 (01:00→20:47)
[2021-01-28] MEDS ORDERED: LACTATED RINGERS 500 ML IV ONE (01:49)
[2021-01-28] MEDS ORDERED: VECURONIUM 10 MG VIAL IV ONE ×2 (02:02→03:18)
[2021-01-28] MEDS ORDERED: ETOMIDATE 20 MG/10 ML VIAL IV ONE ×2 (02:02→03:18)
[2021-01-28 02:28] LABS: Basophils % 0.1 % (0.0-0.8); Hematocrit 34.1 VOL% (42.0-52.0); Hemoglobin 10.8 GM/DL (14.0-18.0); Immature Granulocytes % 1.4 %; Immature Granulocytes Absolute 0.24 #; Lymphocytes # 0.4 10*3/uL (1.4-4.0); Lymphocytes % 2.5 % (21.2-54.2); Mean Corpuscular HGB Conc 31.7 GM/DL (32-36); Mean Corpuscular Volume 104.3 FL (87-102); Mean Platelet Volume 12.7 FL (9.6-12.0); Monocytes % 4.5 % (1.7-12.7); NRBC # 0.39 10*3/uL; Neutrophils % 91.5 % (38.7-73.9); Platelet Count 92 T/CUMM (130-400); Red Blood Count 3.27 MC/CUMM (3.8-5.5); Red Cell Distribution Width 25.2 % (9.3-17.3); White Blood Count 17.5 T/CUMM (4-12)
[2021-01-28] MEDS ORDERED: NOREPINEPHRINE 4 MG/4 ML VIAL IV ONE (02:28)
[2021-01-28] MEDS: NOREPINEPHRINE 8 MG in SODIUM CHLORIDE 0.9% 242 ML IV PRN ×4 (02:43→16:10)
[2021-01-28 02:53] LABS: Albumin 1.6 G/DL (3.4-5.0); Potassium 4.6 MMOL/L (3.5-5.1)
[2021-01-28 03:03] LABS: Bilirubin,Total 25.1 MG/DL (0.20-1.00)
[2021-01-28 03:21] LABS: ABG Base Excess -8.9 MMOL/L (-2.5-2.5); ABG HCO3 19.6 MMOL/L (20-26); ABG Oxygen Saturation 89.1 % (95-100); ABG PCO2 54.4 MM HG (35-48); ABG PO2 77.6 MM HG (80-95); ABG TCO2 21.2 MMOL/L (23-27)
[2021-01-28 03:22] LABS: Band Neutrophils 1 % (0-10); Nucleated Red Blood Cells 1 (0-5); Platelet Estimate Decreased; Segmented Neutrophils 98 % (50-85); Total Cells Counted 100
[2021-01-28 03:23] LABS: Burr Cells 1+; Macrocytosis 1+; Polychromasia Few
[2021-01-28 03:23] LABS: ABG PH 7.174 (7.35-7.45)
[2021-01-28 03:24] LABS: Schistocytes Few
[2021-01-28 03:25] LABS: Ovalocytes Slight; Target Cells Slight
[2021-01-28] MEDS: CLINDAMYCIN INJ 600 MG/50 ML PREMIX IV SCH ×3 (04:53→18:22)
[2021-01-28] MEDS ORDERED: fentaNYL INJ 1,250 MCG in SODIUM CHLORIDE 0.9% 225 ML IV PRN (05:00)
[2021-01-28] MEDS: INSULIN REGULAR 100 UNIT/ML SUBCUT SCH ×3 (05:34→18:40)
[2021-01-28 06:23] LABS: Allen Test Positive; Pt O2 Delivery Device Ventilator
[2021-01-28 06:26] LABS: ABG Base Excess -9.6 MMOL/L (-2.5-2.5); ABG HCO3 16.7 MMOL/L (20-26); ABG Oxygen Saturation 93.4 % (95-100); ABG PCO2 48.8 MM HG (35-48); ABG TCO2 17.4 MMOL/L (23-27)
[2021-01-28 06:38] LABS: ABG PH 7.191 (7.35-7.45)
[2021-01-28] MEDS: methylPREDNISolone SOD SUC 40 MG/1 ML VIAL IV SCH (08:09)
[2021-01-28] MEDS: SPIRONOLACTONE 25 MG TABLET PO SCH (08:09)
[2021-01-28] MEDS: cefTRIAXone 1,000 MG in SODIUM CHLORIDE 0.9% 100 ML IV SCH (08:09)
[2021-01-28] MEDS: FAMOTIDINE 20 MG/2 ML VIAL IV SCH ×2 (08:09→20:47)
[2021-01-28] MEDS: FLUCONAZOLE 40 MG/ML 35 ML/BOTTLE PO SCH (08:10)
[2021-01-28] MEDS: INSULIN GLARGINE 100 UNIT/ML SUBCUT SCH (08:10)
[2021-01-28] MEDS: POTASSIUM CHLORIDE 20 MEQ TABLET PO SCH (08:10)
[2021-01-28] MEDS: LACTULOSE 20 GM/30 ML UDCUP PO SCH (08:10)
[2021-01-28] MEDS: PENTOXIFYLLINE 400 MG TABLET PO SCH ×2 (08:11→16:07)
[2021-01-28] MEDS ORDERED: DIGOXIN 0.5 MG/2 ML AMP IV ONE (08:21)
[2021-01-28] MEDS ORDERED: SODIUM CHLORIDE 0.9% 500 ML IV ONE ×2 (08:22→10:53)
[2021-01-28 08:37] LABS: INR 1.8; PT Patient Result 19.1 SECS (10.5-12.0)
[2021-01-28] MEDS: SKIN HEALING OINT (AQUAPHOR) 50 GM TUBE TOP SCH (10:07)
[2021-01-28] MEDS ORDERED: FUROSEMIDE 40 MG/4 ML VIAL IV SCH (12:00)
[2021-01-28 13:39] LABS: Basophils % 0.2 % (0.0-0.8); Hematocrit 29.5 VOL% (42.0-52.0); Immature Granulocytes % 1.8 %; Lymphocytes # 0.2 10*3/uL (1.4-4.0); Lymphocytes % 3.7 % (21.2-54.2); Mean Corpuscular HGB Conc 30.5 GM/DL (32-36); Mean Corpuscular Volume 108.5 FL (87-102); Mean Platelet Volume 12.8 FL (9.6-12.0); Monocytes % 2.5 % (1.7-12.7); NRBC # 0.95 10*3/uL; Neutrophils % 91.8 % (38.7-73.9); Platelet Count 93 T/CUMM (130-400); Red Blood Count 2.72 MC/CUMM (3.8-5.5); Red Cell Distribution Width 25.1 % (9.3-17.3); White Blood Count 5.7 T/CUMM (4-12)
[2021-01-28] MEDS: PHENYLEPHRINE DRIP 40 MG/250 ML PREMIX IV PRN ×2 (13:56→16:10)
[2021-01-28 13:59] LABS: Albumin 1.3 G/DL (3.4-5.0); Calcium 11.8 MG/DL (8.5-10.1); Osmolality,Calculated 310.6 MOS/KG (273-304); Potassium 4.4 MMOL/L (3.5-5.1); Total Protein 3.9 G/DL (6.4-8.2)
[2021-01-28 14:02] VITALS: BP 103/59
[2021-01-28 14:16] LABS: Bilirubin,Total 22.7 MG/DL (0.20-1.00)
[2021-01-28] MEDS ORDERED: DEXTROSE 5% 1,000 ML IV SCH (14:30)
[2021-01-28] MEDS ORDERED: LACTATED RINGERS 1,000 ML IV ONE (15:57)
[2021-01-28 16:48] LABS: Band Neutrophils 3 % (0-10); Lymphocytes 9 % (20-55); Metamyelocytes 1 %; Myelocytes 2 %; Nucleated Red Blood Cells 23 (0-5); Segmented Neutrophils 74 % (50-85); Total Cells Counted 100
[2021-01-28 16:49] LABS: Anisocytosis 1+; Basophilic Stippling Slight; Hypochromasia 1+; Polychromasia 1+
[2021-01-28 16:50] LABS: Target Cells Slight
== END 2021-01-28 19:16 | disposition expired | DRG 432 ==
LOC: N.ED 16:16 → N.EDINP 20:58 → SUATTDRO 20:58 → N.EDINP 22:11 → N.TELES 01-07 00:26 → N.CC 01-14 12:12
PROVIDERS: ADMIT Hospitalist; ATTEND Internal Medicine